=== PATIENT | male | born 1950 | race Caucasian/White ===

== ENCOUNTER 2023-12-09 00:21 | Emergency (ER) | payer MEDICARE, OTHER, SELFPAY ==
[2023-12-09 00:25] VITALS: BP 130/82
[2023-12-09 00:48] VITALS: BMI 36.6
--- NOTE | 2023-12-09 03:17 | ED.GENMED ---
History of Present Illness
General
Chief Complaint: Head Injury
Source: patient
Exam Limitations: none
Time Seen by Provider: 12/09/23 01:13
Nursing documentation reviewed up to this point in time: agreed with
Travel History
Have you had any contact with someone who has COVID-19?: No
Do you have any symptoms of coronavirus? Fever > 100 degrees, chills, cough, shortness of breath, sore throat, loss of taste or smell, muscle aches, or headache?: No
History of Present Illness
History of Present Illness:
73-year-old male with a past medical history of hypertension, hyperlipidemia, atrial fibrillation on Pradaxa who presents to the emergency department for evaluation after a fall with head trauma. Patient reports that he was getting out of his truck
at [facility] and he tripped on the curb and fell forward hit the right side of his head. He thinks he may have had a transient loss of consciousness after head trauma. He says he was able to get up on his own and has been ambulatory since the fall. He
says that he came to the emergency room for evaluation given that he is on Pradaxa. He denies any headache. Denies any neck pain. Denies any significant chest or abdominal pain. No back pain. Denies any pain in his extremities. Denies any
numbness or weakness in his extremities. He has minor abrasion to his right hand and to his knees; says his tetanus is up-to-date.
Past History
Past History
ED Past Medical History: HTN, NIDDM, Other (Traumatic brain injury) and Other (UTI, sepsis)
ED Past Surgical History: Urological and Other
Patient has exhibited threatening behavior?: No
Social History
Tobacco: Non-smoker
Alcohol: Occasional
Drug: None
Personal:
Living: with family
Employment: Employed
Family History
Family History: Diabetes, CAD and Cancer; Negative Hypertension or Asthma
Review of Systems
Review of Systems
Respiratory: Denies trouble breathing
Cardiac: Denies chest pain
ABD/GI: Denies abdominal pain, nausea or vomiting
: Denies flank pain
Musculoskeletal: Denies neck pain or back pain
Neurological: Denies dizzy, headache, weakness or numbness
Phy Exam
Physical Exam
Physical Exam:
General: Awake, alert, oriented x3; no acute distress
Head: Normocephalic, right forehead contusion
Eyes: Conjunctiva normal, pupils equal round reactive to light bilaterally
Throat: Airway intact, handling secretions
Neck: Trachea midline, supple without meningismus
Lungs: Clear to auscultation bilaterally, no wheezing, rales, rhonchi
Heart: Regular rate and rhythm, no murmurs, gallops, or rubs; no significant chest wall tenderness, no
Abd: Soft, non distended, nontender
Neuro: Cranial nerves grossly intact, speech fluid
Skin: Abrasion to the dorsum of the right fifth digit, very minor abrasions to the knees bilaterally
Extremities: Abrasions as above; no tenderness in the extremities, both upper and lower extremities through full range of motion without discomfort
Scores
Heart Failure Risk
Heart Failure Risk Score: Not Applicable
Heart Score for Chest Pain Patients
STEMI patient?: Not applicable
Withdrawal Assessment of Alcohol
Withdrawal Assessment Completed?: Not applicable
Course
Orders/Labs/Results
Orders:
Orders
12/09/23 00:[address] [CT Head W/o Iv Contrast] Urgent
Comment:
Reason For Exam: FALL ON PRADAXA
Vital Signs
Initial and Last Documented VS:
Initial Vital Signs
Temp Pulse Resp BP Pulse Ox
36.6 C 74 18 130/82 94
12/09/23 00:25 12/09/23 00:25 12/09/23 00:25 12/09/23 00:25 12/09/23 00:25
Last Documented Vital Signs
Temp Pulse Resp BP Pulse Ox
36.6 C 74 18 130/82 94
12/09/23 00:25 12/09/23 00:25 12/09/23 00:25 12/09/23 00:25 12/09/23 00:25
MDM/Problems Addressed
Differential Diagnosis Includes:
Fall with head trauma and questionable loss of consciousness�must rule out intracranial hemorrhage differential would also include concussion and just a minor head contusion
MDM/Problems Addressed:
73-year-old male presents after trip and fall while walking with head trauma�he thinks he may have lost consciousness for seconds after the trauma. He is on Pradaxa. No other serious injuries reported. Vital signs normal. Exam as above. Will
plan to check CT head. Patient's tetanus is up-to-date, will clean abrasions. No clear indication for further imaging at this point in time�while he does have minor abrasions to the knees he is ambulatory and has good range of motion without
discomfort in these, similarly only minor abrasion to the right fifth digit with good range of motion and so no indication for emergent x-rays.
CT head negative for any acute posttraumatic injury. Patient neftali awake and alert with normal vital signs. Requesting discharge. I think he is stable for discharge at this point in time. Spoke about return precautions and all questions answered.
Chronic conditions affecting care:
History of A-fib on Pradaxa which complicates his fall and head trauma
*Radiology
Radiology exam reviewed: radiology read reviewed
*Pulse Oximetry
Patient hypoxic: no
*Critical Care Note
Total Time (30-74mins, 75-104mins- exclusive of procedures): Not Applicable
Data Reviewed
Source: patient and records
Further Testing Considered But Not Given:
Considered x-ray of the hand, knees as above
ED Attending Note
-
Portions of this chart may have been created with voice recognition software.� Occasional wrong word or��sound alike� substitutions may have occurred due to the inherent limitations of voice recognition software.
Discharge Plan
Departure
Patient Disposition: Home (Routine Discharge)
Date of Disposition: 12/09/23
Time of Disposition: 02:26
Patient with high blood pressure during this ER visit?: No
Discharge Problem:
Forehead contusion, Abrasion
Instructions: Head Injury in Adults (DC), Contusion (DC), Skin Abrasions (DC)
Prescriptions:
No Action
glimepiride 2 MG tablet
2 mg PO DAILY
lovastatin 40 MG tablet
40 mg PO QPM
dabigatran etexilate [Pradaxa] 150 MG capsule
150 mg PO BID
bumetanide 0.5 MG tablet
0.5 mg PO QPM
magnesium oxide 500 MG tablet
500 mg PO DAILY Qty: 14 0RF
Jardiance 10 MG tablet
10 mg PO DAILY Qty: 30 0RF
tamsulosin 0.4 MG capsule
0.4 mg PO DAILY Qty: 30 0RF
cetirizine 10 MG tablet
10 mg PO DAILY
metoprolol succinate 50 MG tablet extended release 24 hr
50 mg PO BID
diphenhydramine HCl [Banophen] 25 MG capsule
25 mg PO HS
lisinopril 2.5 mg tablet
2.5 mg PO DAILY
cephalexin 500 mg capsule
500 mg PO Q6H 7 Days Qty: 28 0RF
Referrals:
Bola Cam MD [Family Provider] - Follow up in 5-7 days
Activity Restrictions/Additional Instructions:
Thank you for visiting the Emergency Department at [facility].
1. Please schedule a follow up appointment as directed. Call first thing tomorrow morning to make an appointment.
2. If indicated, please take your medications as instructed and indicated on discharge paperwork.
3. If any of your symptoms do not improve, or persist, or become more severe within 6-12 hours, please return to the emergency department for further care.
4. Please return to the emergency department if you develop a headache, neck pain/stiffness, fever greater than 100.4F, chest pain, shortness of breath, persistent nausea, vomiting, slurred speech, difficulty walking, numbness/tingling, weakness,
signs of infection or any other symptoms that are worrisome to you.
Please call [phone] if you have any questions.
Interventions
Interventions:
*Risk Screen - Suicide Last Done: 12/09/23 00:25
*General Assessment Last Done: 12/09/23 00:47
*Neglect/Abuse Screening Last Done: 12/09/23 00:25
ED- Fall Risk Assessment Last Done: 12/09/23 02:32
*ED COVID-19 Vaccine History Last Done: 12/09/23 00:47
*Nursing Disposition Last Done: 12/09/23 02:32
ED-Musculoskeletal Assessment Last Done: 12/09/23 01:13
ED- Neurological Assessment Last Done: 12/09/23 01:12
ED-Skin Assessment Last Done: 12/09/23 01:13
Discharge Date and Time
Discharge Date/Time: 12/09/23 02:39
== END 2023-12-09 02:39 | disposition home or self-care (01) ==
LOC: EMR 00:21
PROVIDERS: EMERGENCY PHYSICIAN Emergency Medicine; FAMILY PHYSICIAN Family Medicine
DX: S00.83XA Contusion of other part of head, initial encounter (principal); S60.511A Abrasion of right hand, initial encounter; S80.212A Abrasion, left knee, initial encounter; S80.211A Abrasion, right knee, initial encounter; W10.1XXA Fall (on)(from) sidewalk curb, initial encounter; Y92.512 Supermarket, store or market as the place of occurrence of the external cause; E11.9 Type 2 diabetes mellitus without complications; I10 Essential (primary) hypertension; I48.91 Unspecified atrial fibrillation; E78.5 Hyperlipidemia, unspecified; G47.30 Sleep apnea, unspecified; M19.90 Unspecified osteoarthritis, unspecified site; Z79.01 Long term (current) use of anticoagulants; Z79.84 Long term (current) use of oral hypoglycemic drugs; Z87.820 Personal history of traumatic brain injury; Z87.440 Personal history of urinary (tract) infections; Z90.81 Acquired absence of spleen
CPT/HCPCS: 99284; 70450

== ENCOUNTER → 2024-09-06 06:28 | Day surgery (SDC) | payer MEDICARE, OTHER, SELFPAY ==
[2024-09-06 07:08] LABS: Glucose - Point of Care 122 mg/dl (70-99)
== END ==
LOC: GI 06:28
PROVIDERS: ATTENDING PHYSICIAN Internal Medicine Gastroenterology; FAMILY PHYSICIAN Internal Medicine Cardiovascular Disease
DX: Z12.11 Encounter for screening for malignant neoplasm of colon (principal); Z83.719 Family history of colon polyps, unspecified; K57.30 Diverticulosis of large intestine without perforation or abscess without bleeding; K64.8 Other hemorrhoids; K63.5 Polyp of colon
CPT/HCPCS: 45380; 88305; 82962

== ENCOUNTER 2025-03-12 03:18 | Emergency (ER) | payer MEDICARE, OTHER, SELFPAY ==
[2025-03-12 03:25] VITALS: BP 123/76
[2025-03-12 03:55] LABS: % Basophils 0.7 % (0-2); % Eosinophils 2.1 % (0-6); % Immature Granulocytes 0.2 % (0-0.5); % Lymphocytes 22.4 % (20.5-51.1); % Monocytes 16.8 % (1.7-9.3); % Neutrophils 57.8 % (42.2-75.2); Absolute Basophils 0.1 10^3/uL (0-0.2); Absolute Eosinophils 0.2 10^3/uL (0-0.7); Absolute Monocytes 1.5 10^3/uL (0.1-0.6); Absolute Neutrophils 5.3 10^3/uL (1.4-6.5); Hematocrit 50.1 % (39.0-52.0); Hemoglobin 17.5 g/dL (13.0-18.0); Mean Corp Hgb Conc. 34.9 g/dL (33.0-37.0); Mean Corpuscular Hgb 32.8 pg (27.0-31.0); Mean Platelet Volume 10.5 fL (7.4-10.4); Nucleated Red Blood Cells % 0 % (-); Platelet Count 268 10^3/uL (130-400); Red Blood Cell Count 5.33 10^6/uL (4.70-6.10); Red Cell Dist. Width 15.7 % (11.5-14.5); White Blood Cell Count 9.1 10^3/uL (4.8-10.8)
[2025-03-12 04:17] LABS: ALT (SGPT) 23 U/L (0-50); AST (SGOT) 23 U/L (17-59); Alkaline Phosphatase 45 U/L (38-126); Blood Urea Nitrogen 19 mg/dl (9-20); Calcium 9.8 mg/dl (8.4-10.2); Carbon Dioxide 23 mmol/L (22-30); Chloride 106 mmol/L (98-107); Glucose 156 mg/dl (70-99); Lipase 80 U/L (23-300); Potassium 4.1 mmol/L (3.5-5.1); Sodium 138 mmol/L (135-145); Total Bilirubin 0.7 mg/dl (0.2-1.3); Total Protein 7.4 g/dl (6.3-8.2); eGFR > 60.00
--- NOTE | 2025-03-12 04:20 | ED.GENMED ---
History of Present Illness
General
Chief Complaint: Abdominal Symptoms
Time Seen by Provider: 03/12/25 04:20
History of Present Illness
History of Present Illness:
TIME OF INITIAL ENCOUNTER: 4:20 AM
HPI: Patient presents with nausea, vomiting, and diarrhea over the past 4 days. Of note he has been on Mounjaro for over a year and did lose weight. There has been no change in his dose recently. He describes having a lot of 'reflux'. He does
not have any significant amount of abdominal pain other than maybe a little bit on the right side.
EXAM:
GENERAL: Well appearing in no distress, slight hypotension noted with the patient has excellent mental status
HEENT: Moist oral mucosa
CARDIOVASCULAR: No murmurs, normal heart rate, regular rhythm, No chest wall tenderness
PULMONARY: No respiratory distress, breath sounds are clear and equal
ABDOMEN: Soft with no peritoneal signs, no tenderness
NEUROLOGIC: Good strength all extremities, no coordination deficits
PSYCHIATRIC: Appropriate mental status, normal insight and judgement
EXTREMITIES: Nontender, no edema, moves all extremities equally
SKIN: No rash, no lesions
NUMBER AND COMPLEXITY OF PROBLEMS ADDRESSED AT THE ENCOUNTER
� Chronic conditions affecting care: Had TBI in the past, A-fib, high blood pressure, UTI, diabetes
� Acute Exacerbation and/or Progression of Chronic Illness: This is an acute problem
� Differential Diagnosis includes: ELIZABETH, dehydration, GERD, medication side effects
AMOUNT AND/OR COMPLEXITY OF DATA TO BE REVIEWED AND ANALYZED
� I performed an independent evaluation of and my interpretation is:
EKG: A-fib 74, left axis deviation, nonspecific ST abnormality
CT:
X-rays:
Laboratory Studies: White count normal, hemoglobin slightly high at 17.5, chemistries unremarkable, glucosuria noted on urinalysis
Other:
� Review of other/old records: I reviewed records, the patient had a colonoscopy last August
� Clinical information was obtained by an independent historian: I spoke to at bedside
� Prescriptions/Medications Considered but not given:
� Further testing considered but not performed: Considered CT imaging however the patient has no abdominal tenderness on exam
RISK OF COMPLICATIONS AND/OR MORBIDITY OR MORTALITY OF PATIENT MANAGEMENT
� Social determinants of health affecting care: Lives at home
� Discussion with other providers:
� Escalation of care including admission/observation vs risk of discharge considered: The patient reports nausea, vomiting, and diarrhea. He is not currently nauseated. He has a soft nontender abdomen. His white count.
Hemoglobin slightly on the higher side which could be reflective of some mild dehydration
ANY OTHER UPDATES:
6 AM: I reassessed patient. Blood pressure noted to be low. The patient states that his blood pressure has commonly been in the 90/50 range. We talked about the possibly of a viral etiology given the associated nausea, vomiting, and diarrhea
without significant abdominal pain. He also had reflux kind of sensation going up towards the chest and I recommended he start a PPI.
Past History
Past History
ED Past Medical History: HTN, NIDDM, Other (Traumatic brain injury) and Other (UTI, sepsis)
ED Past Surgical History: Urological and Other
Patient has exhibited threatening behavior?: No
Social History
Tobacco: Non-smoker
Alcohol: Occasional
Drug: None
Personal:
Living: with family
Employment: Employed
Family History
Family History: Diabetes, CAD and Cancer; Negative Hypertension or Asthma
Phy Exam
Physical Exam
Physical Exam:
See HPI
Course
Orders/Labs/Results
Orders:
Orders
03/12/25 03:31
IV Insert/Care/Rem.- Treatment PRN
03/12/25 03:45
ECG [Electrocardiogram (*1)] Urgent
Reason for Study: Abdominal Pain
Cardiology Consult: Unknown
EKG- Treatment ONCE
03/12/25 03:48
Complete Blood Count/With Diff Urgent
Comprehensive Metabolic Panel Urgent
Lipase Urgent
Urinalysis Reflex To Culture Urgent
Date Specimen was Collected: 03/12/25
Time Specimen was Collected: 03:31
03/12/25 04:20
0.9% Sodium Chloride 1000 ml [Nss] 1,000 ml IV BOLUS
03/12/25 04:47
Famotidine [Pepcid] 40 mg PO NOW STA
Ondansetron Injectable [Zofran] 4 mg IV NOW STA
Pantoprazole [Protonix IV] 40 mg IV NOW STA
Abnormal Lab Results
03/12/25
03:48
MCH 32.8 H pg
(27.0-31.0)
RDW 15.7 H %
(11.5-14.5)
MPV 10.5 H fL
(7.4-10.4)
Absolute Monos (auto) 1.5 H 10^3/uL
(0.1-0.6)
Monocytes % 16.8 H %
(1.7-9.3)
Glucose 156 H mg/dl
(70-99)
Urine Glucose 4+ A
(Negative)
03/12/25 03:48
03/12/25 03:48
Vital Signs
Initial and Last Documented VS:
Initial Vital Signs
Temp Pulse Resp BP Pulse Ox
36.9 C 73 20 123/76 98
03/12/25 03:25 03/12/25 03:25 03/12/25 03:25 03/12/25 03:25 03/12/25 03:25
Last Documented Vital Signs
Temp Pulse Resp BP Pulse Ox
36.9 C 68 13 101/70 100
03/12/25 03:25 03/12/25 06:00 03/12/25 06:00 03/12/25 06:00 03/12/25 06:00
*Critical Care Note
Total Time (30-74mins, 75-104mins- exclusive of procedures): Not Applicable
ED Attending Note
-
Portions of this chart may have been created with voice recognition software.� Occasional wrong word or��sound alike� substitutions may have occurred due to the inherent limitations of voice recognition software.
Discharge Plan
Departure
Patient Disposition: Home (Routine Discharge)
Date of Disposition: 03/12/25
Time of Disposition: 06:07
Patient with high blood pressure during this ER visit?: Yes
Discharge Problem:
Nausea vomiting and diarrhea
Instructions: Diarrhea in teens and adults, Nausea and Vomiting, Adult (DC), BLOOD PRESSURE
Prescriptions:
No Action
lovastatin 40 MG tablet
40 mg PO QPM
dabigatran etexilate [Pradaxa] 150 MG capsule
150 mg PO BID
bumetanide 0.5 MG tablet
0.5 mg PO QPM
magnesium oxide 500 MG tablet
500 mg PO DAILY Qty: 14 0RF
Jardiance 10 MG tablet
10 mg PO DAILY Qty: 30 0RF
tamsulosin 0.4 MG capsule
0.4 mg PO DAILY Qty: 30 0RF
cetirizine 10 MG tablet
10 mg PO DAILY
metoprolol succinate 50 MG tablet extended release 24 hr
50 mg PO BID
diphenhydramine HCl [Banophen] 25 MG capsule
25 mg PO HS
lisinopril 2.5 mg tablet
2.5 mg PO DAILY
Mounjaro 10 mg/0.5 mL Pen Injector
10 mg SC QWEEK
Referrals:
Bola Cam MD [Family Provider] -
Activity Restrictions/Additional Instructions:
We gave you a liter of fluid. Your white blood cell count is normal. Your chemistries are normal. Glucose is slightly high however and there is glucose seen in the urine but no sign of urinary tract action. Return here if worse or other
concerns. Since possibly have associated reflux, recommend that you take something like omeprazole which is [id number] over the next 2 weeks to help treat reflux.
Interventions
Interventions:
*Risk Screen - Suicide Last Done: 03/12/25 03:25
*General Assessment Last Done: 03/12/25 03:25
*Neglect/Abuse Screening Last Done: 03/12/25 03:25
*ED- Fall Risk Assessment Last Done: 03/12/25 03:25
*ED COVID-19 Vaccine History Last Done: 03/12/25 03:25
[id number]-[id number] Assessment Last Done: 03/12/25 04:44
Discharge Date and Time
Print Language: ARMENIAN
[2025-03-12 04:29] VITALS: BMI 30.5
[2025-03-12 04:41] VITALS: BP 132/100
[2025-03-12] MEDS: NSS 1000 IV (04:52)
[2025-03-12] MEDS: ZOFRAN 4 MG IV (04:56)
[2025-03-12] MEDS: PROTONIX IV 40 MG IV (04:56)
[2025-03-12] MEDS: PEPCID 40 MG PO (04:56)
[2025-03-12 05:00] VITALS: BP 96/74
[2025-03-12 05:14] LABS: Urine Albumin Negative (Neg - Trace); Urine Bilirubin Negative (Negative); Urine Character Clear (Clear); Urine Color Yellow; Urine Glucose 4+ (Negative); Urine Ketone Negative (Negative); Urine Leukocyte Negative (Negative); Urine Nitrite Negative (Negative); Urine Occult Blood Negative (Negative); Urine Specific Gravity 1.015 (<1.030); Urine Urobilinogen Negative (Neg - 1+)
[2025-03-12 06:00] VITALS: BP 101/70
== END 2025-03-12 07:03 | disposition home or self-care (01) ==
LOC: EMR 03:18
PROVIDERS: EMERGENCY PHYSICIAN Emergency Medicine; FAMILY PHYSICIAN Family Medicine
DX: R11.2 Nausea with vomiting, unspecified (principal); R19.7 Diarrhea, unspecified; E11.9 Type 2 diabetes mellitus without complications; I10 Essential (primary) hypertension; Z79.85 Long-term (current) use of injectable non-insulin antidiabetic drugs
CPT/HCPCS: 96374; 96375; 96361; 99284; 80053; 81003; 83690; 85025; 93005

== ENCOUNTER → 2025-06-09 10:55 | Outpatient (REF) | payer MEDICARE, OTHER, SELFPAY | LOC: RCS 10:55 | PROVIDERS: ATTENDING PHYSICIAN Nuclear Medicine Nuclear Cardiology; FAMILY PHYSICIAN Family Medicine | DX: I48.21 Permanent atrial fibrillation (principal); I42.9 Cardiomyopathy, unspecified; R60.9 Edema, unspecified | CPT/HCPCS: 93306; Q9950 ==